=== PATIENT | male | born 1960 | race African-American/Black ===

== ENCOUNTER 2018-07-26 13:12 | Emergency (ER) | payer OTHER ==
[~2018-07-26] VITALS: Ht 170.2 cm; Wt 96.6 kg
[2018-07-26] MEDS ORDERED: ASPIRIN 81 MG TABLET CHEW PO ONE (13:30)
[2018-07-26 14:09] LABS: BASOPHILS # (AUTO) 0.04 x10^3/uL (0-0.1); BASOPHILS % (AUTO) 0 % (0-1); EOSINOPHILS # (AUTO) 0.32 x10^3/uL (0-0.4); EOSINOPHILS % (AUTO) 3 % (1-7); LYMPHOCYTES # (AUTO) 2.46 x10^3/uL (1-3.4); LYMPHOCYTES % (AUTO) 26 % (22-44); MD NO; MEAN CORPUSCULAR HEMOGLOBIN 30.3 pg (27.5-34.5); MEAN CORPUSCULAR HGB CONC 33.1 g/dL (33.2-36.2); MEAN CORPUSCULAR VOLUME 91.5 fL (81-97); MONOCYTES % (AUTO) 6 % (2-9); NEUTROPHILS # (AUTO) 6.19 x10^3/uL (1.8-6.8); NEUTROPHILS % (AUTO) 64 % (42-75); PLATELET COUNT 229 x10^3/uL (130-400); RED BLOOD COUNT 5.17 x10^6/uL (4.38-5.82); RED CELL DISTRIBUTION WIDTH 12.3 % (9.4-14.8)
[2018-07-26 14:21] LABS: ALBUMIN 4.3 g/dL (3.4-5.0); ANION GAP 7 mmol/L (5-15); CHLORIDE 101 mmol/L (98-107)
[2018-07-26 14:25] LABS: TROPONIN I 0.065 ng/mL (0.000-0.045)
--- NOTE | 2018-07-26 14:56 | NUR ---
PT AMBULATORY FROM LOBBY TO ROOM.
--- NOTE | 2018-07-26 15:00 | NUR ---
PT ASX AT THIS TIME. PT PLACED ON HEART MONITOR, BP CUFF, PULSE OX. PT UPDATED ON RESULTS AND POC. CALL LIGHT WITHIN REACH. VS UPDATED IN COMPUTER. URINAL AT BS.
--- NOTE | 2018-07-26 16:17 | NUR ---
VSS/UPDATED IN COMPUTER.
[2018-07-26] MEDS ORDERED: hydrALAzine 20 MG/ML, 1ML IV ONE (16:30)
[2018-07-26] MEDS ORDERED: hydrALAzine 20 MG/ML, 1ML ONE (17:10)
--- NOTE | 2018-07-26 17:17 | NUR ---
IV PLACED, REPEAT TROP DRAWN. MED GIVEN PER ERP ORDER FOR HTN. CALL LIGHT WITHIN REACH.
[2018-07-26 17:21] LABS: TROPONIN I 0.087 ng/mL (0.000-0.045)
--- NOTE | 2018-07-26 18:31 | NUR ---
VERIFIED DC C ED , DR. MOSS. OK TO DC PT WITH CURRENT VS. PT VERBALIZED UNDERSTANDING TO DC INSTRUCTIONS. AMBULATORY TO CHECKOUT C STEADY GAIT.
[2018-07-26 18:32] VITALS: BP 172/92
== END 2018-07-26 18:34 | disposition home or self-care (01) ==
LOC: ED 16:09
DX: I10 Essential (primary) hypertension (principal); Z88.1 Allergy status to other antibiotic agents; Z88.8 Allergy status to other drugs, medicaments and biological substances
CPT/HCPCS: 36415; 71045; 80048; 82040; 84484; 85025; 93005; 96374; 99284; J0360